=== PATIENT | male | born 1950 | race Caucasian/White ===

== ENCOUNTER 2017-03-26 07:05 | Inpatient (IN) ==
[2017-03-26 12:17] LABS: Basophils % 0.2 % (0.0-0.8); Hematocrit 35.9 VOL% (42.0-52.0); Immature Granulocytes Absolute 0.68 #; Lymphocytes # 0.6 10*3/uL (1.4-4.0); Lymphocytes % 3.6 % (21.2-54.2); Mean Corpuscular HGB Conc 33.4 GM/DL (32-36); Mean Corpuscular Hemoglobin 31 PG (27-34); Mean Corpuscular Volume 93.5 FL (87-102); Mean Platelet Volume 9.3 FL (9.6-12.0); Monocytes # 0.1 10*3/uL (0.11-0.8); Monocytes % 0.7 % (1.7-12.7); Neutrophils # 15.7 10*3/uL (1.4-7.4); Neutrophils % 91.5 % (38.7-73.9); Platelet Count 386 T/CUMM (130-400); Red Blood Count 3.84 MC/CUMM (3.8-5.5); Red Cell Distribution Width 16.3 % (9.3-17.3); White Blood Count 17.1 T/CUMM (4-12)
[2017-03-26] MEDS ORDERED: ONDANSETRON 4 MG/2 ML VIAL IV PRN (12:35)
[2017-03-26 12:45] LABS: Alanine Aminotransferase 94 U/L (16-61); Albumin 1.7 G/DL (3.4-5.0); Alkaline Phosphatase 94 U/L (45-117); Aspartate Amino Transferase 36 U/L (0-37); Bilirubin,Total < 0.39 MG/DL (0.2-1.0); Blood Urea Nitrogen 41 MG/DL (7-18); Calcium 8.1 MG/DL (8.5-10.1); Glucose 199 MG/DL (74-106); Osmolality,Calculated 290.7 MOS/KG (273-304); Potassium 4.7 MMOL/L (3.5-5.1); Sodium 138 MMOL/L (136-145); Total Protein 5.4 G/DL (6.4-8.3)
[2017-03-26 12:46] LABS: Basophilic Stippling Slight; Lymphocytes 1 % (20-55); Macrocytosis 1+; Platelet Estimate Adequate; Segmented Neutrophils 98 % (50-85); Total Cells Counted 100
[2017-03-26] MEDS: IMMUNE GLOBULIN 10% 20 GM, IMMUNE GLOBULIN 10% 5 GM in PREMIX 1 EACH IV SCH (13:27)
[2017-03-26] MEDS ORDERED: ACETAMINOPHEN 325 MG/10.15 ML UDCUP PO PRN (14:39)
[2017-03-26] MEDS ORDERED: GLUCAGON 1 MG VIAL IM PRN (16:15)
[2017-03-26] MEDS ORDERED: DEXTROSE 50% 25 GM/50 ML VIAL IV PRN (16:15)
[2017-03-26] MEDS: PROPOFOL 1,000 MG/100 ML BOTTLE IV SCH (16:36)
[2017-03-26] MEDS: KETOROLAC 15 MG/1 ML VIAL IV PRN ×2 (16:45→22:01)
[2017-03-26] MEDS: INSULIN LISPRO 100 UNIT/ML SUBCUT SCH (18:40)
[2017-03-26] MEDS: ALBUTEROL/IPRATROPIUM 3 ML NEB RESP TX SCH (19:32)
[2017-03-26] MEDS: methylPREDNISolone SOD SUC 40 MG/1 ML VIAL IV SCH (21:51)
[2017-03-26] MEDS: DOCUSATE SODIUM 100 MG/10 ML UDCUP PO SCH (21:51)
[2017-03-27] MEDS: INSULIN LISPRO 100 UNIT/ML SUBCUT SCH ×5 (00:21→23:53)
[2017-03-27] MEDS: ALBUTEROL/IPRATROPIUM 3 ML NEB RESP TX SCH ×4 (00:31→19:37)
[2017-03-27 03:06] LABS: ABG Base Excess 5.7 MMOL/L (-2.5-2.5); ABG HCO3 29.6 MMOL/L (20-26); ABG PCO2 39.5 MM HG (35-48); ABG PH 7.481 (7.35-7.45); ABG TCO2 25.7 MMOL/L (23-27); Allen Test Positive; Pt O2 Delivery Device Ventilator
[2017-03-27 06:23] LABS: Basophils % 0.1 % (0.0-0.8); Hematocrit 32.5 VOL% (42.0-52.0); Hemoglobin 10.9 GM/DL (14.0-18.0); Immature Granulocytes % 4.1 %; Immature Granulocytes Absolute 0.36 #; Lymphocytes # 0.3 10*3/uL (1.4-4.0); Lymphocytes % 3.4 % (21.2-54.2); Mean Corpuscular HGB Conc 33.5 GM/DL (32-36); Mean Corpuscular Hemoglobin 31 PG (27-34); Mean Corpuscular Volume 92.9 FL (87-102); Mean Platelet Volume 9.7 FL (9.6-12.0); Monocytes # 0.3 10*3/uL (0.11-0.8); Monocytes % 3.8 % (1.7-12.7); Neutrophils # 7.7 10*3/uL (1.4-7.4); Neutrophils % 88.6 % (38.7-73.9); Platelet Count 286 T/CUMM (130-400); Red Cell Distribution Width 16.3 % (9.3-17.3); White Blood Count 8.7 T/CUMM (4-12)
[2017-03-27] MEDS: INSULIN GLARGINE 100 UNIT/ML SUBCUT SCH ×2 (06:26→09:16)
[2017-03-27 06:47] LABS: Calcium 7.7 MG/DL (8.5-10.1); Osmolality,Calculated 288.1 MOS/KG (273-304); Potassium 4.6 MMOL/L (3.5-5.1)
[2017-03-27 06:51] LABS: Magnesium 2.3 MG/DL (1.8-2.4); Phosphorous 3.9 MG/DL (2.5-4.9); Prealbumin 23.7 MG/DL (20-40)
[2017-03-27 08:04] LABS: Hypochromasia 2+; Microcytosis 1+
[2017-03-27] MEDS: PANTOPRAZOLE 40 MG VIAL IV SCH (09:00)
[2017-03-27] MEDS: methylPREDNISolone SOD SUC 40 MG/1 ML VIAL IV SCH ×2 (09:05→20:49)
[2017-03-27] MEDS: DOCUSATE SODIUM 100 MG/10 ML UDCUP PO SCH ×2 (09:16→20:48)
[2017-03-27] MEDS: ENOXAPARIN 40 MG/0.4 ML SYRINGE SUBCUT SCH (09:17)
[2017-03-27] MEDS: KETOROLAC 15 MG/1 ML VIAL IV PRN (12:27)
[2017-03-27] MEDS: IMMUNE GLOBULIN 10% 20 GM, IMMUNE GLOBULIN 10% 5 GM in PREMIX 1 EACH IV SCH (14:00)
[2017-03-27] MEDS: PROPOFOL 1,000 MG/100 ML BOTTLE IV SCH (14:42)
[2017-03-27] MEDS: CARBAMIDE PEROXIDE 6.5% OTIC SOLN 15 ML BOTTLE BOTH EARS SCH (20:48)
[2017-03-28] MEDS: ALBUTEROL/IPRATROPIUM 3 ML NEB RESP TX SCH ×4 (01:24→19:07)
[2017-03-28 03:06] LABS: ABG Base Excess 7.7 MMOL/L (-2.5-2.5); ABG HCO3 30.9 MMOL/L (20-26); ABG Oxygen Saturation 98.6 % (95-100); ABG PCO2 37.7 MM HG (35-48); ABG PH 7.531 (7.35-7.45); ABG PO2 156.5 MM HG (80-95); Allen Test Positive; Pt O2 Delivery Device Ventilator
[2017-03-28] MEDS: INSULIN LISPRO 100 UNIT/ML SUBCUT SCH ×3 (06:06→18:16)
[2017-03-28] MEDS: KETOROLAC 15 MG/1 ML VIAL IV PRN ×2 (06:39→15:44)
[2017-03-28] MEDS ORDERED: HYDROmorphone 2 MG/1 ML VIAL IV PRN (07:59)
[2017-03-28] MEDS: PANTOPRAZOLE 40 MG VIAL IV SCH (09:15)
[2017-03-28] MEDS: methylPREDNISolone SOD SUC 40 MG/1 ML VIAL IV SCH ×2 (09:30→21:09)
[2017-03-28] MEDS: PHENYLEPHRINE DRIP 40 MG/250 ML PREMIX IV SCH (09:58)
[2017-03-28] MEDS: CARBAMIDE PEROXIDE 6.5% OTIC SOLN 15 ML BOTTLE BOTH EARS SCH ×2 (09:59→21:08)
[2017-03-28] MEDS: DOCUSATE SODIUM 100 MG/10 ML UDCUP PO SCH ×2 (09:59→21:08)
[2017-03-28] MEDS: NYSTATIN 500,000 UNIT/5 ML UDCUP SWISH/SWAL SCH ×4 (09:59→21:08)
[2017-03-28] MEDS: ENOXAPARIN 40 MG/0.4 ML SYRINGE SUBCUT SCH (10:00)
[2017-03-28] MEDS: INSULIN GLARGINE 100 UNIT/ML SUBCUT SCH (12:19)
[2017-03-28] MEDS: PROPOFOL 1,000 MG/100 ML BOTTLE IV SCH ×2 (12:21→15:38)
[2017-03-28] MEDS: IMMUNE GLOBULIN 10% 20 GM, IMMUNE GLOBULIN 10% 5 GM in PREMIX 1 EACH IV SCH (13:50)
[2017-03-29] MEDS: ALBUTEROL/IPRATROPIUM 3 ML NEB RESP TX SCH ×4 (00:09→19:36)
[2017-03-29] MEDS: INSULIN LISPRO 100 UNIT/ML SUBCUT SCH ×5 (00:30→21:48)
[2017-03-29] MEDS: PROPOFOL 1,000 MG/100 ML BOTTLE IV SCH ×2 (01:34→08:00)
[2017-03-29] MEDS: KETOROLAC 15 MG/1 ML VIAL IV PRN ×2 (03:03→18:35)
[2017-03-29 03:30] LABS: ABG Base Excess 4.2 MMOL/L (-2.5-2.5); ABG HCO3 28.2 MMOL/L (20-26); ABG Oxygen Saturation 99.4 % (95-100); ABG PCO2 40.1 MM HG (35-48); ABG PH 7.458 (7.35-7.45); ABG TCO2 25.5 MMOL/L (23-27); Allen Test Positive; Pt O2 Delivery Device Ventilator
[2017-03-29] MEDS: PHENYLEPHRINE DRIP 40 MG/250 ML PREMIX IV SCH (08:38)
[2017-03-29] MEDS: ENOXAPARIN 40 MG/0.4 ML SYRINGE SUBCUT SCH (08:45)
[2017-03-29] MEDS: methylPREDNISolone SOD SUC 40 MG/1 ML VIAL IV SCH ×2 (08:45→21:48)
[2017-03-29] MEDS: PANTOPRAZOLE 40 MG VIAL IV SCH (08:46)
[2017-03-29] MEDS: INSULIN GLARGINE 100 UNIT/ML SUBCUT SCH (08:46)
[2017-03-29] MEDS: DOCUSATE SODIUM 100 MG/10 ML UDCUP PO SCH ×2 (08:46→21:48)
[2017-03-29] MEDS: CARBAMIDE PEROXIDE 6.5% OTIC SOLN 15 ML BOTTLE BOTH EARS SCH ×2 (08:47→21:47)
[2017-03-29] MEDS: NYSTATIN 500,000 UNIT/5 ML UDCUP SWISH/SWAL SCH ×4 (08:47→21:47)
[2017-03-29 10:04] LABS: ABG Base Excess 5.3 MMOL/L (-2.5-2.5); ABG HCO3 29.2 MMOL/L (20-26); ABG Oxygen Saturation 99.4 % (95-100); ABG PCO2 36.5 MM HG (35-48); ABG PH 7.502 (7.35-7.45); ABG TCO2 25.9 MMOL/L (23-27); Allen Test Positive
[2017-03-29 11:05] LABS: ABG HCO3 28.9 MMOL/L (20-26); ABG Oxygen Saturation 97.2 % (95-100); ABG PCO2 40.6 MM HG (35-48); ABG PH 7.464 (7.35-7.45); ABG PO2 91.7 MM HG (80-95); ABG TCO2 26.1 MMOL/L (23-27)
[2017-03-29 11:06] LABS: Allen Test Positive
[2017-03-29] MEDS: IMMUNE GLOBULIN 10% 20 GM, IMMUNE GLOBULIN 10% 5 GM in PREMIX 1 EACH IV SCH (14:40)
[2017-03-29] MEDS ORDERED: PHENOL 1.4% THROAT SPRAY 177 ML BOTTLE PO PRN (19:38)
[2017-03-29] MEDS ORDERED: ZALEPLON 5 MG CAPSULE PO PRN (19:40)
[2017-03-30] MEDS: ALBUTEROL/IPRATROPIUM 3 ML NEB RESP TX SCH ×4 (00:32→19:47)
[2017-03-30] MEDS: INSULIN LISPRO 100 UNIT/ML SUBCUT SCH ×4 (09:05→21:40)
[2017-03-30] MEDS: PHENYLEPHRINE DRIP 40 MG/250 ML PREMIX IV SCH (09:05)
[2017-03-30] MEDS: DOCUSATE SODIUM 100 MG/10 ML UDCUP PO SCH ×2 (09:25→21:40)
[2017-03-30] MEDS: NYSTATIN 500,000 UNIT/5 ML UDCUP SWISH/SWAL SCH ×4 (09:25→21:41)
[2017-03-30] MEDS: FLUCONAZOLE 100 MG TABLET PO SCH (09:26)
[2017-03-30] MEDS: PANTOPRAZOLE 40 MG VIAL IV SCH (09:26)
[2017-03-30] MEDS: INSULIN GLARGINE 100 UNIT/ML SUBCUT SCH (09:27)
[2017-03-30] MEDS: ENOXAPARIN 40 MG/0.4 ML SYRINGE SUBCUT SCH (09:27)
[2017-03-30] MEDS: methylPREDNISolone SOD SUC 40 MG/1 ML VIAL IV SCH ×2 (09:27→21:42)
[2017-03-30] MEDS: CARBAMIDE PEROXIDE 6.5% OTIC SOLN 15 ML BOTTLE BOTH EARS SCH ×2 (09:28→21:41)
[2017-03-30] MEDS: IMMUNE GLOBULIN 10% 20 GM, IMMUNE GLOBULIN 10% 5 GM in PREMIX 1 EACH IV SCH (14:37)
[2017-03-30] MEDS: KETOROLAC 15 MG/1 ML VIAL IV PRN (21:45)
[2017-03-31] MEDS: ALBUTEROL/IPRATROPIUM 3 ML NEB RESP TX SCH ×3 (00:30→13:03)
[2017-03-31 05:20] LABS: Hematocrit 31.5 VOL% (42.0-52.0); Hemoglobin 10.5 GM/DL (14.0-18.0); Immature Granulocytes % 1.1 %; Immature Granulocytes Absolute 0.07 #; Lymphocytes # 0.3 10*3/uL (1.4-4.0); Lymphocytes % 4.1 % (21.2-54.2); Mean Corpuscular HGB Conc 33.3 GM/DL (32-36); Mean Corpuscular Hemoglobin 31 PG (27-34); Monocytes # 0.2 10*3/uL (0.11-0.8); Monocytes % 3.8 % (1.7-12.7); Neutrophils # 5.8 10*3/uL (1.4-7.4); Platelet Count 234 T/CUMM (130-400); Red Blood Count 3.35 MC/CUMM (3.8-5.5); Red Cell Distribution Width 15.9 % (9.3-17.3); White Blood Count 6.4 T/CUMM (4-12)
[2017-03-31 05:50] LABS: Magnesium 2.1 MG/DL (1.8-2.4); Osmolality,Calculated 279.7 MOS/KG (273-304); Potassium 3.9 MMOL/L (3.5-5.1)
[2017-03-31 05:51] LABS: Band Neutrophils 1 % (0-10); Giant Platelets Few; Hypochromasia 1+; Lymphocytes 1 % (20-55); Microcytosis Slight; Platelet Estimate Adequate; Segmented Neutrophils 95 % (50-85); Total Cells Counted 100
[2017-03-31] MEDS: methylPREDNISolone SOD SUC 40 MG/1 ML VIAL IV SCH (08:40)
[2017-03-31] MEDS: PHENYLEPHRINE DRIP 40 MG/250 ML PREMIX IV SCH (08:50)
[2017-03-31] MEDS: INSULIN LISPRO 100 UNIT/ML SUBCUT SCH ×2 (08:50→11:53)
[2017-03-31] MEDS: DOCUSATE SODIUM 100 MG/10 ML UDCUP PO SCH (08:51)
[2017-03-31] MEDS: INSULIN GLARGINE 100 UNIT/ML SUBCUT SCH (08:51)
[2017-03-31] MEDS: FLUCONAZOLE 100 MG TABLET PO SCH (08:51)
[2017-03-31] MEDS: CARBAMIDE PEROXIDE 6.5% OTIC SOLN 15 ML BOTTLE BOTH EARS SCH (08:51)
[2017-03-31] MEDS: ENOXAPARIN 40 MG/0.4 ML SYRINGE SUBCUT SCH (08:51)
[2017-03-31] MEDS: NYSTATIN 500,000 UNIT/5 ML UDCUP SWISH/SWAL SCH ×2 (08:52→13:33)
[2017-03-31] MEDS: PANTOPRAZOLE 40 MG VIAL IV SCH (08:52)
[2017-03-31] MEDS ORDERED: PNEUMOCOCCAL VACCINE (13 VALENT) 0.5 ML SYRINGE IM ONE (12:44)
[2017-03-31 14:33] VITALS: BP 123/63
== END 2017-03-31 14:23 | DRG 545 ==
LOC: N.CC 10:38
PROVIDERS: ADMIT Internal Medicine Pulmonary Disease; ATTEND Internal Medicine Pulmonary Disease

== ENCOUNTER 2017-04-26 10:34 | Inpatient (IN) ==
[2017-04-26] MEDS ORDERED: ALBUTEROL/IPRATROPIUM 3 ML NEB RESP TX PRN (12:15)
[2017-04-26] MEDS ORDERED: PHENOL 1.4% THROAT SPRAY 177 ML BOTTLE PO PRN (12:15)
[2017-04-26] MEDS ORDERED: ACETAMINOPHEN 325 MG TABLET PO SCH (12:30)
[2017-04-26] MEDS ORDERED: ACETAMINOPHEN 325 MG TABLET PO PRN (12:49)
[2017-04-26] MEDS: NYSTATIN 500,000 UNIT/5 ML UDCUP SWISH/SWAL SCH ×3 (14:36→22:09)
[2017-04-26] MEDS: IMMUNE GLOBULIN 10% 20 GM, IMMUNE GLOBULIN 10% 5 GM in PREMIX 1 EACH IV SCH (14:36)
[2017-04-26] MEDS: ALBUTEROL/IPRATROPIUM 3 ML NEB RESP TX SCH ×2 (14:53→19:28)
[2017-04-26] MEDS: INSULIN LISPRO 100 UNIT/ML SUBCUT SCH ×2 (17:21→22:15)
[2017-04-26] MEDS: DOCUSATE SODIUM 100 MG/10 ML UDCUP PO SCH (22:09)
[2017-04-26] MEDS: ZALEPLON 5 MG CAPSULE PO SCH (22:10)
[2017-04-26] MEDS: predniSONE 10 MG TABLET PO SCH (22:13)
[2017-04-26] MEDS: FLUTICASONE 50 MCG NASAL SPRAY 16 GM BOTTLE BOTH NARES SCH (22:15)
[2017-04-27] MEDS: ALBUTEROL/IPRATROPIUM 3 ML NEB RESP TX SCH (08:42)
[2017-04-27] MEDS ORDERED: INSULIN GLARGINE 100 UNIT/ML SUBCUT SCH ×2 (09:00→09:19)
[2017-04-27] MEDS ORDERED: PANTOPRAZOLE 40 MG TABLET PO SCH (09:00)
[2017-04-27] MEDS ORDERED: ALBUTEROL/IPRATROPIUM 3 ML NEB RESP TX PRN (09:00)
[2017-04-27] MEDS: DOCUSATE SODIUM 100 MG/10 ML UDCUP PO SCH (09:28)
[2017-04-27] MEDS: FLUTICASONE 50 MCG NASAL SPRAY 16 GM BOTTLE BOTH NARES SCH ×2 (09:30→22:33)
[2017-04-27] MEDS: PANTOPRAZOLE 20 MG TABLET PO SCH (09:30)
[2017-04-27] MEDS: predniSONE 10 MG TABLET PO SCH ×2 (09:30→22:25)
[2017-04-27] MEDS: NYSTATIN 500,000 UNIT/5 ML UDCUP SWISH/SWAL SCH ×4 (09:30→22:31)
[2017-04-27] MEDS: INSULIN LISPRO 100 UNIT/ML SUBCUT SCH ×4 (09:31→22:34)
[2017-04-27] MEDS: IMMUNE GLOBULIN 10% 20 GM, IMMUNE GLOBULIN 10% 5 GM in PREMIX 1 EACH IV SCH (12:19)
[2017-04-27] MEDS: DOCUSATE SODIUM 100 MG CAPSULE PO SCH (22:25)
[2017-04-27] MEDS: ZALEPLON 5 MG CAPSULE PO SCH (22:28)
[2017-04-28 04:22] LABS: Basophils # 0.1 10*3/uL (0.0-0.2); Basophils % 0.9 % (0.0-0.8); Hematocrit 24.5 VOL% (42.0-52.0); Immature Granulocytes % 25.7 %; Lymphocytes # 0.5 10*3/uL (1.4-4.0); Lymphocytes % 7.7 % (21.2-54.2); Mean Corpuscular HGB Conc 32.7 GM/DL (32-36); Mean Corpuscular Hemoglobin 31 PG (27-34); Mean Corpuscular Volume 94.2 FL (87-102); Mean Platelet Volume 9.1 FL (9.6-12.0); Monocytes # 0.4 10*3/uL (0.11-0.8); Neutrophils # 3.5 10*3/uL (1.4-7.4); Neutrophils % 59.7 % (38.7-73.9); Platelet Count 266 T/CUMM (130-400); Red Cell Distribution Width 16.6 % (9.3-17.3); White Blood Count 5.8 T/CUMM (4-12)
[2017-04-28 04:39] LABS: Calcium 7.9 MG/DL (8.5-10.1); Osmolality,Calculated 282.5 MOS/KG (273-304); Potassium 3.6 MMOL/L (3.5-5.1)
[2017-04-28 05:10] LABS: Band Neutrophils 3 % (0-10); Giant Platelets Few; Hypochromasia 1+; Lymphocytes 10 % (20-55); Myelocytes 2 %; Nucleated Red Blood Cells 3 (0-5); Ovalocytes Slight; Platelet Estimate Adequate; Segmented Neutrophils 76 % (50-85); Total Cells Counted 100
[2017-04-28 05:11] LABS: Polychromasia Slight
[2017-04-28] MEDS: NYSTATIN 500,000 UNIT/5 ML UDCUP SWISH/SWAL SCH ×4 (09:16→22:12)
[2017-04-28] MEDS: predniSONE 10 MG TABLET PO SCH ×2 (09:16→22:12)
[2017-04-28] MEDS: DOCUSATE SODIUM 100 MG CAPSULE PO SCH ×2 (09:17→22:13)
[2017-04-28] MEDS: PANTOPRAZOLE 20 MG TABLET PO SCH (09:17)
[2017-04-28] MEDS: FLUTICASONE 50 MCG NASAL SPRAY 16 GM BOTTLE BOTH NARES SCH ×2 (09:19→22:13)
[2017-04-28] MEDS: INSULIN LISPRO 100 UNIT/ML SUBCUT SCH ×4 (09:19→22:26)
[2017-04-28] MEDS: IMMUNE GLOBULIN 10% 20 GM, IMMUNE GLOBULIN 10% 5 GM in PREMIX 1 EACH IV SCH (09:20)
[2017-04-29] MEDS: ZALEPLON 5 MG CAPSULE PO SCH ×2 (08:25→21:01)
[2017-04-29] MEDS: predniSONE 10 MG TABLET PO SCH ×2 (10:15→21:00)
[2017-04-29] MEDS: FLUTICASONE 50 MCG NASAL SPRAY 16 GM BOTTLE BOTH NARES SCH ×2 (10:15→21:01)
[2017-04-29] MEDS: NYSTATIN 500,000 UNIT/5 ML UDCUP SWISH/SWAL SCH ×4 (10:15→20:59)
[2017-04-29] MEDS: DOCUSATE SODIUM 100 MG CAPSULE PO SCH ×2 (10:15→21:00)
[2017-04-29] MEDS: INSULIN GLARGINE 100 UNIT/ML SUBCUT SCH (10:15)
[2017-04-29] MEDS: PANTOPRAZOLE 20 MG TABLET PO SCH (10:15)
[2017-04-29] MEDS: INSULIN LISPRO 100 UNIT/ML SUBCUT SCH ×4 (10:58→21:00)
[2017-04-29] MEDS: IMMUNE GLOBULIN 10% 20 GM, IMMUNE GLOBULIN 10% 5 GM in PREMIX 1 EACH IV SCH (10:59)
[2017-04-30] MEDS: INSULIN LISPRO 100 UNIT/ML SUBCUT SCH ×3 (08:55→16:57)
[2017-04-30] MEDS: IMMUNE GLOBULIN 10% 20 GM, IMMUNE GLOBULIN 10% 5 GM in PREMIX 1 EACH IV SCH (11:16)
[2017-04-30] MEDS: PANTOPRAZOLE 20 MG TABLET PO SCH (11:43)
[2017-04-30] MEDS: NYSTATIN 500,000 UNIT/5 ML UDCUP SWISH/SWAL SCH ×3 (11:43→16:55)
[2017-04-30] MEDS: DOCUSATE SODIUM 100 MG CAPSULE PO SCH (11:44)
[2017-04-30] MEDS: FLUTICASONE 50 MCG NASAL SPRAY 16 GM BOTTLE BOTH NARES SCH (11:45)
[2017-04-30] MEDS: predniSONE 10 MG TABLET PO SCH (11:57)
[2017-04-30] MEDS: INSULIN GLARGINE 100 UNIT/ML SUBCUT SCH (12:54)
[2017-04-30 21:34] VITALS: BP 149/70
== END 2017-04-30 18:10 | disposition home health service (06) | DRG 546 ==
LOC: N.4E 11:26
PROVIDERS: ADMIT Internal Medicine Pulmonary Disease; ATTEND Internal Medicine Pulmonary Disease